=== PATIENT | female | born 1960 | race African-American/Black ===

== ENCOUNTER 2017-08-24 13:40 | Emergency (ER) | payer BC ==
[2017-08-24 14:08] VITALS: BP 148/92; PULSE 97; TEMP 98.6; BMI 22.6
[2017-08-24 14:17] LABS: URINE APPEARANCE Clear; URINE BILIRUBIN Negative (NEGATIVE); URINE BLOOD Trace-intact (NEGATIVE); URINE GLUCOSE (UA) Negative (NEGATIVE); URINE KETONE Negative (NEGATIVE); URINE LEUK ESTERASE Negative (NEGATIVE); URINE NITRITE Negative (NEGATIVE); URINE PROTEIN Negative (NEGATIVE); URINE UROBILINOGEN 0.2 (0.2-1.0)
[2017-08-24 14:18] LABS: URINE COLOR YELLOW
[2017-08-24 14:41] LABS: URINE WBC NONE SEEN (3-5)
--- NOTE | 2017-08-24 15:17 | PDOC ---
History of Present Illness <Starla Faye - Last Filed: 08/24/17 15:43> - History of Present Illness Initial Comments: 08/24/17 15:22 "The patient is a 57 year old female, with a significant past medical history of (20 years ago), who presents to the emergency department with pain around her C section scar. Patient states that around 1 week ago, her scar began to hurt. Then around 2 days ago she noticed that the area had reddened but she states that she left the area alone. This morning she noticed that the area began to drain white pus. She reports associated symptoms of subjective fever since this morning but attributed the fever to her hot flashes since she recently began menopause. She also states that she has been experiencing urinary urgency for a couple of days now. She denies recent chills, headache or dizziness. She denies recent nausea, vomit , diarrhea or constipation. She denies recent dysuria,or hematuria. She denies recent chest pain or shortness of breath. PCP: Mario Eckert M.D. Allergies: Penicillin, Azithromycin " <Gilson Butcher - Last Filed: 08/25/17 13:52> - General Chief Complaint: Abscess Boil Stated Complaint: ABSCESS Time Seen by Provider: 08/24/17 14:33 Past History <Starla Faye - Last Filed: 08/24/17 15:43> - Past Medical History Anemia: No Asthma: Yes Cancer: No Cardiac Disorders: No CVA: No COPD: No CHF: No Dementia: No Diabetes: No GI Disorders: No Disorders: No HTN: No Hypercholesterolemia: No Liver Disease: No Seizures: No Thyroid Disease: Yes (THYROID TUMOR) - Surgical History Abdominal Surgery: No Appendectomy: No Cardiac Surgery: No Cholecystectomy: No Lung Surgery: No Neurologic Surgery: No Orthopedic Surgery: No - Suicide/Smoking/Psychosocial Hx Smoking History: Never smoked Hx Alcohol Use: Yes (OCCASIONAL) Drug/Substance Use Hx: No Substance Use Type: None Hx Substance Use Treatment: No <Gilson Butcher - Last Filed: 08/25/17 13:52> - Past Medical History Allergies/Adverse Reactions: Allergies Allergy/AdvReac Type Severity Reaction Status Date / Time Penicillins Allergy Intermediate Rash Unverified 04/01/13 11:59 azithromycin [From Zithromax] AdvReac Intermediate Abdominal Unverified 11:59 cramps Hair dye Allergy Severe Severe Uncoded 01/22/16 07:34 facial and eye swelling Home Medications: Ambulatory Orders Zolpidem Tartrate [Ambien] 5 mg PO HS 04/01/13 Cholecalciferol (Vitamin D3) [Vitamin D3 -] 1,000 unit PO DAILY 08/24/17 Clindamycin [Cleocin -] 300 mg PO QID #30 capsule 08/24/17 Review of Systems - Review of Systems Comments:: 08/24/17 15:14 "GENERAL/CONSTITUTIONAL: +subjective fever. No chills. No weakness. HEAD, EYES, EARS, NOSE AND THROAT: No change in vision. No ear pain or discharge. No sore throat. CARDIOVASCULAR: No chest pain or shortness of breath. RESPIRATORY: No cough, wheezing, or hemoptysis. GASTROINTESTINAL: No nausea, vomiting, diarrhea or constipation. GENITOURINARY: +increased urge to urinate. No dysuria. MUSCULOSKELETAL: No joint or muscle swelling or pain. No neck or back pain. SKIN: + drainage from scar. NEUROLOGIC: No headache, vertigo, loss of consciousness, or change in strength/ sensation. ENDOCRINE: No increased thirst. No abnormal weight change. HEMATOLOGIC/LYMPHATIC: No anemia, easy bleeding, or history of blood clots. ALLERGIC/IMMUNOLOGIC: No hives or skin allergy. " <Gilson Butcher - Last Filed: 08/25/17 13:52> *Physical Exam - Vital Signs Last Vital Signs Temp Pulse Resp BP Pulse Ox 98.6 F 97 H 15 148/92 98 08/24/17 13:54 08/24/17 13:54 08/24/17 13:54 08/24/17 13:54 08/24/17 13:54 <Starla Faye - Last Filed: 08/24/17 15:43> - Vital Signs Last Vital Signs Temp Pulse Resp BP Pulse Ox 98.6 F 97 H 15 148/92 98 08/24/17 13:54 08/24/17 13:54 08/24/17 13:54 08/24/17 13:54 08/24/17 13:54 - Physical Exam Comments: 08/24/17 15:14 "GENERAL: Awake, alert, and fully oriented, in no acute distress HEAD: No signs of trauma EYES: PERRLA, EOMI, sclera anicteric, conjunctiva clear ENT: Auricles normal inspection, hearing grossly normal, nares patent, oropharynx clear without exudates. Moist mucosa NECK: Normal ROM, supple, no lymphadenopathy, JVD, or masses LUNGS: Breath sounds equal, clear to auscultation bilaterally. No wheezes, and no crackles HEART: Regular rate and rhythm, normal S1 and S2, no murmurs, rubs or gallops ABDOMEN:Soft, nontender, normoactive bowel sounds. No guarding, no rebound. no CVAT EXTREMITIES: Normal range of motion, no edema. No clubbing or cyanosis. No cords , erythema, or tenderness NEUROLOGICAL: Normal speech, cranial nerves intact, negative pronator drift, 5/ 5 strength in all 4 extremities, normal sensation to light touch in all 4 extremities, normal cerebellar exam, normal gait, normal reflexes and tone SKIN:+Midline vertical surgical incision scar over the abdomen well healed with small ulceration at inferior end. scant purulent drainage with no fluctuance or surrounding erythema." <Gilson Butcher - Last Filed: 08/25/17 13:52> ED Treatment Course - LABORATORY CBC & Chemistry Diagram: 08/24/17 15:25 08/24/17 15:25 - ADDITIONAL ORDERS Additional order review: Laboratory Results 08/24/17 14:12 Urine Color Yellow Urine Appearance Clear Urine pH 6.0 Ur Specific [place] <= 1.005 Urine Protein Negative Urine Glucose (UA) Negative Urine Ketones Negative Urine Blood Trace-intact H Urine Nitrite Negative Urine Bilirubin Negative Urine Urobilinogen 0.2 Urine RBC 3-5 Urine WBC None seen Ur Epithelial Cells 0-3 <Starla Faye - Last Filed: 08/24/17 15:43> - LABORATORY CBC & Chemistry Diagram: 08/24/17 15:25 08/24/17 15:55 - ADDITIONAL ORDERS Additional order review: Laboratory Results 08/24/17 14:12 Urine Color Yellow Urine Appearance Clear Urine pH 6.0 Ur Specific [place] <= 1.005 Urine Protein Negative Urine Glucose (UA) Negative Urine Ketones Negative Urine Blood Trace-intact H Urine Nitrite Negative Urine Bilirubin Negative Urine Urobilinogen 0.2 Urine RBC 3-5 Urine WBC None seen Ur Epithelial Cells 0-3 - RADIOLOGY Radiology Studies Ordered: Category Date Time Status ABDOMEN & PELVIS CT WITH CONTR [CT] Stat CT Scan 08/24/17 14:46 Ordered <Gilson Butcher - Last Filed: 08/25/17 13:52> Medical Decision Making - Medical Decision Making 08/24/17 15:17 57 F with purulent drainage from previously well healed scar. Unclear if related to scar, as surgery was performed 20+ years ago. Possible infection of underlying seroma vs new abscess. Cannot r/o deeper tracking infection but unlikely given lack of abdominal tenderness. - Labs - CTAP - Abx 08/24/17 17:37 Pt refusing to wait for CT scan at this time, stating that she feels hungry and tired and would like to go home. The patient is clinically sober, free from distracting injury, appears to have intact insight and judgment and reason and in my opinion has the capacity to make decisions. The patient presented with an infection at the site of her C- section scar. I have explained that I am concerned that this may represent a deeper abdominal infection; they have verbalized an understanding of my concerns. I have told the patient that while their labs were normal, they could still have a bad infection. I have discussed the need for CT scan and possible admission to the hospital to get more information about potential causes of the patients infection. I have told the patient that if they leave and have an untreated infection, they could get much worse, could become critically ill, and could possibly become disabled or . I have offered to give the patient more pain medication. I have asked them to stay in the hospital for the CT scan. The patient is not willing to await CT scan. She is refusing any further care and is leaving against medical advice. I am unable to convince the patient to stay, I have asked them to return as soon as possible to complete their evaluation. I have sent a prescription for Clinda to the pharmacy to treat presumptive skin infection and instructed the patient to return immediately if she feels worse. <Gilson Butcher - Last Filed: 08/25/17 13:52> *DC/Admit/Observation/Transfer - Attestations Scribe Attestion: 08/24/17 15:44 Documentation prepared by Starla Faye, acting as center medical director for Gilson Butcher MD. <Starla Faye - Last Filed: 08/24/17 15:43> <GuadalupeGilson - Last Filed: 08/25/17 13:52> Diagnosis at time of Disposition: AMA - Signed out against medical advice - Discharge Dispostion Disposition: AGAINST MEDICAL ADVICE Condition at time of disposition: Good - Prescriptions Prescriptions: Clindamycin [Cleocin -] 300 mg PO QID #30 capsule - Referrals Referrals: Mario Eckert MD [Primary Care Provider] -
[2017-08-24 16:05] LABS: BASOPHIL 0.8 % (0-2.0); EOSINOPHIL 1.7 % (0-4.5); MCH 32.4 pg (25.7-33.7); MCHC 34.8 g/dl (32.0-36.0); MEAN CELL VOLUME 93.1 fl (80-96); MEAN PLT VOLUME 9.3 fl (7.5-11.1); NEUTROPHILS 43.7 % (42.8-82.8); PLATELET COUNT 222 K/MM3 (134-434); RDW 12.4 % (11.6-15.6); WHITE BLOOD COUNT 4.4 K/mm3 (4.0-10.8)
[2017-08-24 16:54] LABS: ALBUMIN 4.4 g/dl (3.5-5.0); ALK PHOS 70 U/L (32-92); ANION GAP 11 (8-16); BILIRUBIN,TOTAL 0.6 mg/dl (0.2-1.0); CALCIUM 9.7 mg/dl (8.4-10.2); CO2 24 mmol/L (22-28); CREATININE 0.6 mg/dl (0.6-1.3); GLUCOSE,RANDOM 98 mg/dl (74-106); SGOT/AST 20 U/L (10-42); SGPT/ALT 17 U/L (10-40); TOT PROT 7.8 g/dl (6.4-8.3)
== END 2017-08-24 17:45 | disposition left against medical advice (07) ==
LOC: FER 13:40
DX: Z53.21 Procedure and treatment not carried out due to patient leaving prior to being seen by health care provider (principal); J45.909 Unspecified asthma, uncomplicated
CPT/HCPCS: 36415; 80053; 81003; 81015; 85025; 99282-25

== ENCOUNTER 2024-10-03 05:25 | Day surgery (SDC) | payer OTHER ==
[2024-09-26 10:29] VITALS: BMI 26.1
[2024-10-03 10:33] VITALS: TEMP 98.6
[2024-10-03 10:56] VITALS: RESP 15
[2024-10-03 10:57] VITALS: BP 105/60; PULSE 82
== END 2024-10-03 11:05 | disposition home or self-care (01) ==
LOC: JASU-ENDO 05:25
PROVIDERS: ATTEND Internal Medicine Gastroenterology
PROC: 0DBN8ZX Excision of Sigmoid Colon, Via Natural or Artificial Opening Endoscopic, Diagnostic (ICD-10-PCS; 2024-10-03)
PROC: 0DBP8ZX Excision of Rectum, Via Natural or Artificial Opening Endoscopic, Diagnostic (ICD-10-PCS; principal; 2024-10-03 10:00)
DX: Z12.11 Encounter for screening for malignant neoplasm of colon (principal); D12.8 Benign neoplasm of rectum; K63.5 Polyp of colon; K59.89 Other specified functional intestinal disorders; K64.8 Other hemorrhoids
CPT/HCPCS: 88305-TC